=== PATIENT | male | born 1945 | race Caucasian/White ===

== ENCOUNTER → 2021-08-29 | Outpatient (CLI) ==
[~2021-08-29] MED LIST: FAMO40TA3 PO; FINA5TAB2 PO; FLOM0.4C39 PO; LISI5TAB11 PO
== END ==
LOC: M LABSMTC 10:43
PROVIDERS: ATTEND Anesthesiology
DX: Z01.812 Encounter for preprocedural laboratory examination (principal); Z20.822 Contact with and (suspected) exposure to COVID-19

== ENCOUNTER → 2021-09-26 | Outpatient (CLI) | payer MEDICARE | LOC: M LABSMTC 10:59 | PROVIDERS: ATTEND Anesthesiology | DX: Z01.818 Encounter for other preprocedural examination (principal); Z11.52 Encounter for screening for COVID-19 ==

== ENCOUNTER 2021-09-30 07:19 | Day surgery (SDC) | payer MEDICARE ==
[~2021-09-30] VITALS: Ht 160 cm; Wt 67.1 kg
[~2021-09-30 07:19] MED LIST changes: +CEFUROXIME 1MG/0.1ML INTRACAMERAL INJ As Ordered ONE; +LIDOCAINE 1% SDV 5ML VIAL As Ordered ONE; +MIDAZOLAM INJ 2MG/2ML VIAL (J2250 PER 1MG) As Ordered ONE; +OFLOXACIN 0.3 % (OCUFLOX) OPTH SOL 5ML OD SCH; +PHENYLEPHRINE 2.5% OPHTH SOL 2ML OD SCH; +PROPARACAINE 0.5% OPHTH SOL 15ML OD ONE; +TROPICAMIDE 1% OPHTH SOLN 2ML OD SCH
[2021-09-30] MEDS ORDERED: BSS IRR 500ML/OMIDRIA 4ML IRR BAG (OR ONLY) As Ordered ONE (07:59)
[2021-09-30] MEDS ORDERED: fentaNYL 100 MCG/2 ML INJECTION As Ordered ONE (09:33)
[2021-09-30 10:05] VITALS: BP 132/67
== END 2021-09-30 10:30 | disposition home or self-care (01) ==
LOC: M SDC 07:19
PROVIDERS: ATTEND Ophthalmology
DX: H25.11 Age-related nuclear cataract, right eye (principal); I10 Essential (primary) hypertension; E78.5 Hyperlipidemia, unspecified; K21.9 Gastro-esophageal reflux disease without esophagitis; N40.0 Benign prostatic hyperplasia without lower urinary tract symptoms; Z86.16 Personal history of COVID-19; Z79.899 Other long term (current) drug therapy
CPT/HCPCS: 66984; J0697; J1097; J2250; J3010; V2632

== ENCOUNTER → 2021-10-31 | Outpatient (CLI) | payer MEDICARE ==
[~2021-10-31] MED LIST changes: -CEFUROXIME 1MG/0.1ML INTRACAMERAL INJ As Ordered ONE; -LIDOCAINE 1% SDV 5ML VIAL As Ordered ONE; -MIDAZOLAM INJ 2MG/2ML VIAL (J2250 PER 1MG) As Ordered ONE; -OFLOXACIN 0.3 % (OCUFLOX) OPTH SOL 5ML OD SCH; -PHENYLEPHRINE 2.5% OPHTH SOL 2ML OD SCH; -PROPARACAINE 0.5% OPHTH SOL 15ML OD ONE; -TROPICAMIDE 1% OPHTH SOLN 2ML OD SCH
== END ==
LOC: M LABSMTC 11:41
PROVIDERS: ATTEND Ophthalmology
DX: Z01.812 Encounter for preprocedural laboratory examination (principal); Z20.822 Contact with and (suspected) exposure to COVID-19

== ENCOUNTER 2021-11-04 07:22 | Day surgery (SDC) | payer MEDICARE ==
[~2021-11-04] VITALS: Ht 160 cm; Wt 67.0 kg
[~2021-11-04 07:22] MED LIST changes: +BSS IRR 500ML/OMIDRIA 4ML IRR BAG (OR ONLY) As Ordered ONE; +CEFUROXIME 1MG/0.1ML INTRACAMERAL INJ As Ordered ONE; +LIDOCAINE 1% MDV 20ML VIAL SQ PRN; +LIDOCAINE 1% SDV 5ML VIAL As Ordered ONE; +LR 1,000 ML IV ONE; +OFLOXACIN 0.3 % (OCUFLOX) OPTH SOL 5ML OS SCH; +PHENYLEPHRINE 2.5% OPHTH SOL 2ML OS SCH; +PROPARACAINE 0.5% OPHTH SOL 15ML OS ONE; +TROPICAMIDE 1% OPHTH SOLN 2ML OS SCH
[2021-11-04] MEDS ORDERED: fentaNYL 100 MCG/2 ML INJECTION As Ordered ONE (09:01)
[2021-11-04] MEDS ORDERED: MIDAZOLAM INJ 2MG/2ML VIAL (J2250 PER 1MG) As Ordered ONE (09:01)
[2021-11-04 09:39] VITALS: BP 136/66
== END 2021-11-04 09:53 | disposition home or self-care (01) ==
LOC: M SDC 07:22
PROVIDERS: ATTEND Ophthalmology
DX: H25.12 Age-related nuclear cataract, left eye (principal); I10 Essential (primary) hypertension; N18.30 Chronic kidney disease, stage 3 unspecified; N40.0 Benign prostatic hyperplasia without lower urinary tract symptoms; K21.9 Gastro-esophageal reflux disease without esophagitis; Z79.899 Other long term (current) drug therapy
CPT/HCPCS: 66984; J0697; J1097; J2250; J3010; V2632

== ENCOUNTER 2023-02-20 14:25 | Outpatient (CLI) | payer MEDICARE ==
[~2023-02-20 14:25] MED LIST changes: -AMLO10TA PO; -FARX1TAB3 PO; -FOLI1TAB11 PO; -TUMS750C5 PO
[2023-02-23] MEDS ORDERED: methylPREDNISolone 125MG 2ML VIAL IV PRN (07:01)
[2023-02-23] MEDS ORDERED: ALBUTEROL SULFATE 2.5MG/0.5ML INH NEB SOLN INH PRN (07:01)
[2023-02-23] MEDS ORDERED: EPINEPHrine INJ 1 MG/ML 1ML AMP IM PRN (07:01)
[2023-02-23] MEDS ORDERED: diphenhydrAMINE 50MG/ML VIAL IV PRN (07:01)
[2023-02-23] MEDS ORDERED: NS 1,000 ML IV SCH (14:00)
[2023-02-23] MEDS ORDERED: IRON SUCROSE 200 MG in NS 100 ML OVER 1 HR IV ONE (14:00)
== END 2023-02-23 16:40 | disposition home or self-care (01) ==
LOC: M INFU 14:25
PROVIDERS: ATTEND Internal Medicine Hematology
DX: D64.9 Anemia, unspecified (principal)

== ENCOUNTER → 2023-02-20 | Outpatient (CLI) | payer MEDICARE ==
[~2023-02-20] MED LIST changes: +AMLO10TA PO; -BSS IRR 500ML/OMIDRIA 4ML IRR BAG (OR ONLY) As Ordered ONE; -CEFUROXIME 1MG/0.1ML INTRACAMERAL INJ As Ordered ONE; +FARX1TAB3 PO; +FOLI1TAB11 PO; -LIDOCAINE 1% MDV 20ML VIAL SQ PRN; -LIDOCAINE 1% SDV 5ML VIAL As Ordered ONE; -LR 1,000 ML IV ONE; -OFLOXACIN 0.3 % (OCUFLOX) OPTH SOL 5ML OS SCH; -PHENYLEPHRINE 2.5% OPHTH SOL 2ML OS SCH; -PROPARACAINE 0.5% OPHTH SOL 15ML OS ONE; -TROPICAMIDE 1% OPHTH SOLN 2ML OS SCH; +TUMS750C5 PO
[2023-02-20 13:51] LABS: HEMATOCRIT 23.9 % (42.0-52.0)
[2023-02-20 13:52] LABS: HEMATOCRIT 23.6 % (42.0-52.0); HEMOGLOBIN 7.7 g/dl (13.5-17.5); MEAN CORPUSCULAR HEMOGLOBIN 31.3 pg (27.0-33.0); MEAN CORPUSCULAR HGB CONC 32.6 g/dl (32.0-36.5); MEAN CORPUSCULAR VOLUME 95.9 fl (80.0-96.0); PLATELET COUNT, AUTOMATED 336 10^3/uL (150-450); RED BLOOD COUNT 2.46 10^6/uL (4.30-6.10); WHITE BLOOD COUNT 8.1 10^3/uL (4.0-10.0)
[2023-02-20 14:25] LABS: ALBUMIN 2.9 G/DL (3.2-5.2); BILIRUBIN,TOTAL 0.3 MG/DL (0.3-1.2); CALCIUM LEVEL 9.1 MG/DL (8.3-10.6); CREATININE FOR GFR 1.83 MG/DL (0.70-1.30); GLOMERULAR FILTRATION RATE 38.4 (>42); PERCENT SATURATION 19.4 % (19.7-50.0); POTASSIUM SERUM 4.4 MMOL/L (3.5-5.1); TOTAL PROTEIN 7.2 G/DL (5.7-8.2)
[2023-02-20 14:29] LABS: FERRITIN 232.1 NG/ML (10.5-307.3)
[2023-02-20 14:30] LABS: FREE T4 1.04 NG/DL (0.89-1.76); THYROID STIMULATING HORMONE 7.997 uIU/ML (0.55-4.78)
== END ==
LOC: M PLALAB 09:34
PROVIDERS: ATTEND Internal Medicine Hematology
DX: D64.9 Anemia, unspecified (principal)

== ENCOUNTER → 2023-02-21 | Outpatient (REF) | payer MEDICARE | LOC: M SFHCPLAZ 15:02 | PROVIDERS: ATTEND Internal Medicine Hematology | DX: D64.9 Anemia, unspecified (principal) ==

== ENCOUNTER 2023-03-02 13:55 | Outpatient (CLI) | payer MEDICARE ==
[~2023-03-02] VITALS: Ht 160 cm; Wt 57.7 kg
[2023-03-02 13:55] VITALS: BP 131/73; O2SAT 93
[~2023-03-02 13:55] MED LIST changes: +ALBUTEROL SULFATE 2.5MG/0.5ML INH NEB SOLN INH PRN; +EPINEPHrine INJ 1 MG/ML 1ML AMP IM PRN; +diphenhydrAMINE 50MG/ML VIAL IV PRN; +methylPREDNISolone 125MG 2ML VIAL IV PRN
[2023-03-02] MEDS ORDERED: IRON SUCROSE 200 MG in NS 100 ML OVER 1 HR IV ONE (14:00)
[2023-03-02] MEDS ORDERED: NS 1,000 ML IV SCH (14:00)
[2023-03-02] MEDS ORDERED: AMLO10TA PO (16:00)
[2023-03-02] MEDS ORDERED: TUMS750C5 PO (16:02)
[2023-03-02] MEDS ORDERED: FOLI1TAB11 PO (16:02)
[2023-03-02] MEDS ORDERED: FARX1TAB3 PO (16:02)
== END 2023-03-02 16:15 | disposition home or self-care (01) ==
LOC: M INFU 13:55
PROVIDERS: ATTEND Internal Medicine Hematology
DX: D64.9 Anemia, unspecified (principal)
CPT/HCPCS: 96365; J1756

== ENCOUNTER 2023-03-09 15:40 | Outpatient (CLI) | payer MEDICARE ==
[~2023-03-09] VITALS: Ht 160 cm; Wt 60.0 kg
[2023-03-09 15:40] VITALS: BP 128/69; O2SAT 99
[~2023-03-09 15:40] MED LIST changes: +AMLO10TA PO; +FARX1TAB3 PO; +FOLI1TAB11 PO; +IRON SUCROSE 200 MG in NS 100 ML OVER 1 HR IV ONE; +NS 1,000 ML IV SCH; +TUMS750C5 PO
[2023-03-09 16:50] VITALS: BP 120/66; O2SAT 99
== END 2023-03-09 16:50 ==
LOC: M INFU 15:40
PROVIDERS: ATTEND Internal Medicine Hematology
DX: D64.9 Anemia, unspecified (principal)
CPT/HCPCS: 96365; J1756

== ENCOUNTER → 2023-03-15 | Outpatient (CLI) | payer MEDICARE ==
[~2023-03-15] MED LIST changes: -ALBUTEROL SULFATE 2.5MG/0.5ML INH NEB SOLN INH PRN; -EPINEPHrine INJ 1 MG/ML 1ML AMP IM PRN; -IRON SUCROSE 200 MG in NS 100 ML OVER 1 HR IV ONE; -NS 1,000 ML IV SCH; -diphenhydrAMINE 50MG/ML VIAL IV PRN; -methylPREDNISolone 125MG 2ML VIAL IV PRN
[2023-03-15 16:21] LABS: ALBUMIN 2.3 G/DL (3.2-5.2); CALCIUM LEVEL 8.9 MG/DL (8.3-10.6); CREATININE FOR GFR 1.47 MG/DL (0.70-1.30); GLOMERULAR FILTRATION RATE 49.5 (>42); PHOSPHORUS LEVEL 4.1 MG/DL (2.4-5.1); POTASSIUM SERUM 4.3 MMOL/L (3.5-5.1)
== END ==
LOC: M PLALAB 12:49
PROVIDERS: ATTEND Internal Medicine Cardiovascular Disease
DX: I50.32 Chronic diastolic (congestive) heart failure (principal)

== ENCOUNTER 2023-03-16 08:55 | Outpatient (CLI) | payer MEDICARE ==
[~2023-03-16] VITALS: Ht 160 cm; Wt 67.5 kg
[2023-03-16 08:55] VITALS: BP 126/64; O2SAT 99
[~2023-03-16 08:55] MED LIST changes: +ALBUTEROL SULFATE 2.5MG/0.5ML INH NEB SOLN INH PRN; +EPINEPHrine INJ 1 MG/ML 1ML AMP IM PRN; +diphenhydrAMINE 50MG/ML VIAL IV PRN; +methylPREDNISolone 125MG 2ML VIAL IV PRN
[2023-03-16] MEDS ORDERED: IRON SUCROSE 200 MG in NS 100 ML OVER 1 HR IV ONE (09:00)
[2023-03-16] MEDS ORDERED: NS 1,000 ML IV SCH (09:00)
[2023-03-16 10:30] VITALS: BP 126/64; O2SAT 100
== END 2023-03-16 10:30 ==
LOC: M INFU 08:55
PROVIDERS: ATTEND Internal Medicine Hematology
DX: D64.9 Anemia, unspecified (principal)
CPT/HCPCS: 96365; J1756

== ENCOUNTER 2023-03-22 06:57 | Outpatient (CLI) | payer MEDICARE ==
[~2023-03-22] VITALS: Ht 160 cm; Wt 60.9 kg
[~2023-03-22 06:57] MED LIST changes: -ALBUTEROL SULFATE 2.5MG/0.5ML INH NEB SOLN INH PRN; -EPINEPHrine INJ 1 MG/ML 1ML AMP IM PRN; -diphenhydrAMINE 50MG/ML VIAL IV PRN; -methylPREDNISolone 125MG 2ML VIAL IV PRN
[2023-03-22] MEDS ORDERED: NS 1,000 ML IV SCH (07:00)
[2023-03-22] MEDS ORDERED: IRON SUCROSE 200 MG in NS 100 ML OVER 1 HR IV ONE (07:00)
[2023-03-22] MEDS ORDERED: methylPREDNISolone 125MG 2ML VIAL IV PRN (07:01)
[2023-03-22] MEDS ORDERED: ALBUTEROL SULFATE 2.5MG/0.5ML INH NEB SOLN INH PRN (07:01)
[2023-03-22] MEDS ORDERED: diphenhydrAMINE 50MG/ML VIAL IV PRN (07:01)
[2023-03-22] MEDS ORDERED: EPINEPHrine INJ 1 MG/ML 1ML AMP IM PRN (07:01)
[2023-03-22 07:16] VITALS: BP 134/63; O2SAT 100
[2023-03-22 08:43] VITALS: BP 131/59; O2SAT 98
== END 2023-03-22 08:45 ==
LOC: M INFU 06:57
PROVIDERS: ATTEND Internal Medicine Hematology
DX: D50.9 Iron deficiency anemia, unspecified (principal)
CPT/HCPCS: 96365; J1756

== ENCOUNTER 2023-03-29 07:05 | Outpatient (CLI) | payer MEDICARE ==
[~2023-03-29] VITALS: Ht 160 cm; Wt 61.0 kg
[~2023-03-29 07:05] MED LIST changes: +IRON SUCROSE 200 MG in NS 100 ML OVER 1 HR IV ONE
[2023-03-29 07:11] VITALS: BP 121/61; O2SAT 98
== END 2023-03-29 09:00 | disposition home or self-care (01) ==
LOC: M INFU 07:05
PROVIDERS: ATTEND Internal Medicine Hematology
DX: D50.9 Iron deficiency anemia, unspecified (principal)
CPT/HCPCS: 96365; J1756

== ENCOUNTER 2023-04-12 11:00 | Outpatient (CLI) | payer MEDICARE ==
[~2023-04-12] VITALS: Ht 160 cm; Wt 57.3 kg
[~2023-04-12 11:00] MED LIST changes: +ALBUTEROL SULFATE 2.5MG/0.5ML INH NEB SOLN INH PRN; +EPINEPHrine INJ 1 MG/ML 1ML AMP IM PRN; +NS 1,000 ML IV SCH; +diphenhydrAMINE 50MG/ML VIAL IV PRN; +methylPREDNISolone 125MG 2ML VIAL IV PRN
[2023-04-12 11:36] VITALS: BP 125/68; O2SAT 98
[2023-04-12 13:19] VITALS: BP 127/67; O2SAT 97
== END 2023-04-12 13:20 ==
LOC: M INFU 11:00
PROVIDERS: ATTEND Internal Medicine Hematology
DX: D50.9 Iron deficiency anemia, unspecified (principal)
CPT/HCPCS: 96365; J1756

== ENCOUNTER 2023-04-26 10:10 | Outpatient (CLI) | payer MEDICARE ==
[~2023-04-26] VITALS: Ht 160 cm; Wt 60.3 kg
[~2023-04-26 10:10] MED LIST changes: -IRON SUCROSE 200 MG in NS 100 ML OVER 1 HR IV ONE
[2023-04-26 10:41] VITALS: BP 130/63; O2SAT 97
[2023-04-26] MEDS ORDERED: IRON SUCROSE 200 MG in NS 100 ML IV ONE (11:55)
[2023-04-26 13:00] VITALS: BP 116/61; O2SAT 99
== END 2023-04-26 13:00 | disposition home or self-care (01) ==
LOC: M INFU 10:10
PROVIDERS: ATTEND Internal Medicine Hematology
DX: D50.9 Iron deficiency anemia, unspecified (principal)
CPT/HCPCS: 96365; J1756

== ENCOUNTER → 2023-06-12 | Outpatient (CLI) | payer MEDICARE ==
[~2023-06-12] MED LIST changes: -ALBUTEROL SULFATE 2.5MG/0.5ML INH NEB SOLN INH PRN; -EPINEPHrine INJ 1 MG/ML 1ML AMP IM PRN; -NS 1,000 ML IV SCH; -diphenhydrAMINE 50MG/ML VIAL IV PRN; -methylPREDNISolone 125MG 2ML VIAL IV PRN
[2023-06-12 14:30] LABS: BASO % 0.4 % (0.0-1.0); EOS # 0.1 10^3/uL (0.0-0.5); EOS % 1.6 % (0.0-3.0); HEMATOCRIT 26.6 % (42.0-52.0); HEMOGLOBIN 8.5 g/dl (13.5-17.5); LYMPH # 1.5 10^3/uL (1.5-5.0); LYMPH % 18.8 % (24.0-44.0); MEAN CORPUSCULAR HEMOGLOBIN 30.2 pg (27.0-33.0); MEAN CORPUSCULAR VOLUME 94.7 fl (80.0-96.0); MONO # 1.1 10^3/uL (0.0-0.8); NEUTROPHILS % 64.8 % (36.0-66.0); PLATELET COUNT, AUTOMATED 275 10^3/uL (150-450); RED BLOOD COUNT 2.81 10^6/uL (4.30-6.10); WHITE BLOOD COUNT 7.7 10^3/uL (4.0-10.0)
== END ==
LOC: M PLALAB 09:48
PROVIDERS: ATTEND Internal Medicine Hematology
DX: D64.9 Anemia, unspecified (principal)

== ENCOUNTER 2023-06-19 12:54 | Outpatient (CLI) | payer MEDICARE ==
[~2023-06-19] VITALS: Ht 160 cm; Wt 61.0 kg
[~2023-06-19 12:54] MED LIST changes: +ALBUTEROL SULFATE 2.5MG/0.5ML INH NEB SOLN INH PRN; +EPINEPHrine INJ 1 MG/ML 1ML AMP IM PRN; +diphenhydrAMINE 50MG/ML VIAL IV PRN; +methylPREDNISolone 125MG 2ML VIAL IV PRN
[2023-06-19 13:25] VITALS: BP 162/85; O2SAT 98
[2023-06-19] MEDS ORDERED: IRON SUCROSE 200 MG in NS 100 ML OVER 1 HR IV ONE (13:30)
[2023-06-19] MEDS ORDERED: NS 1,000 ML IV SCH (13:30)
[2023-06-19 14:45] VITALS: BP 148/79; O2SAT 99
== END 2023-06-19 14:45 | disposition home or self-care (01) ==
LOC: M INFU 12:54
PROVIDERS: ATTEND Family Medicine
DX: D64.9 Anemia, unspecified (principal)
CPT/HCPCS: 96365; J1756

== ENCOUNTER 2023-06-26 13:45 | Outpatient (CLI) | payer MEDICARE ==
[~2023-06-26] VITALS: Ht 160 cm; Wt 56.8 kg
[2023-06-26 13:45] VITALS: BP 135/71; O2SAT 99
[~2023-06-26 13:45] MED LIST changes: +NS 1,000 ML IV SCH
[2023-06-26] MEDS ORDERED: IRON SUCROSE 200 MG in NS 100 ML IV ONE (14:00)
[2023-06-26 15:00] VITALS: BP 139/78; O2SAT 98
== END 2023-06-26 15:15 | disposition home or self-care (01) ==
LOC: M INFU 13:45
PROVIDERS: ATTEND Family Medicine
DX: D64.9 Anemia, unspecified (principal)
CPT/HCPCS: 96365; J1756

== ENCOUNTER → 2023-09-19 | Outpatient (REF) | payer MEDICARE ==
[~2023-09-19] MED LIST changes: -ALBUTEROL SULFATE 2.5MG/0.5ML INH NEB SOLN INH PRN; -EPINEPHrine INJ 1 MG/ML 1ML AMP IM PRN; -NS 1,000 ML IV SCH; -diphenhydrAMINE 50MG/ML VIAL IV PRN; -methylPREDNISolone 125MG 2ML VIAL IV PRN
[2023-09-19 18:51] LABS: THYROID STIMULATING HORMONE 4.496 uIU/ML (0.55-4.78); THYROXINE (T4) 8.2 UG/DL (4.5-10.9)
[2023-09-19 18:53] LABS: FREE THYROXINE INDEX 3.1 % (1.4-3.8); T UPTAKE 37.2 % (22.5-37.0)
== END ==
LOC: M LAB REF 17:30
PROVIDERS: ATTEND Internal Medicine Cardiovascular Disease
DX: I50.32 Chronic diastolic (congestive) heart failure (principal); I48.91 Unspecified atrial fibrillation; E03.9 Hypothyroidism, unspecified

== ENCOUNTER → 2023-09-27 | Outpatient (CLI) | payer MEDICARE | LOC: M PLAIMG 09:23 | PROVIDERS: ATTEND Internal Medicine Cardiovascular Disease | DX: I50.32 Chronic diastolic (congestive) heart failure (principal); I08.0 Rheumatic disorders of both mitral and aortic valves ==

== ENCOUNTER → 2023-11-11 | Outpatient (CLI) | payer MEDICARE | LOC: M EKG 12:24 | PROVIDERS: ATTEND Internal Medicine Cardiovascular Disease | DX: I49.40 Unspecified premature depolarization (principal); I48.91 Unspecified atrial fibrillation ==

== ENCOUNTER → 2023-12-11 | Outpatient (CLI) | payer MEDICARE ==
[2023-12-11 13:17] LABS: BASO % 0.5 % (0.0-1.0); EOS # 0.2 10^3/uL (0.0-0.5); EOS % 2.5 % (0.0-3.0); HEMATOCRIT 35.1 % (42.0-52.0); HEMOGLOBIN 11.4 g/dl (13.5-17.5); LYMPH # 2.1 10^3/uL (1.5-5.0); LYMPH % 35.3 % (24.0-44.0); MEAN CORPUSCULAR HEMOGLOBIN 29.8 pg (27.0-33.0); MEAN CORPUSCULAR HGB CONC 32.5 g/dl (32.0-36.5); MEAN CORPUSCULAR VOLUME 91.6 fl (80.0-96.0); MONO # 0.8 10^3/uL (0.0-0.8); MONO % 12.7 % (2.0-8.0); NEUTROPHILS # 2.9 10^3/uL (1.5-8.5); NEUTROPHILS % 48.7 % (36.0-66.0); PLATELET COUNT, AUTOMATED 286 10^3/uL (150-450); RED BLOOD COUNT 3.83 10^6/uL (4.30-6.10)
[2023-12-11 13:22] LABS: PERCENT SATURATION 21.8 % (19.7-50.0)
[2023-12-11 13:23] LABS: FREE T4 0.94 NG/DL (0.89-1.76); THYROID STIMULATING HORMONE 12.975 uIU/ML (0.55-4.78)
== END ==
LOC: M PLALAB 10:24
PROVIDERS: ATTEND Internal Medicine Hematology
DX: D64.9 Anemia, unspecified (principal)